=== PATIENT | female | born 1940 | race Caucasian/White ===

== ENCOUNTER 2016-11-10 14:00 | Inpatient (IN) | payer MEDICARE, BC ==
[2016-11-13] MEDS ORDERED: Levofloxacin 500 mg/D5W 100 ml Premix Bag ONE (06:40)
[2016-11-13] MEDS ORDERED: Clindamycin/D5W 900 mg/50 ml Premix Bag ONE (06:40)
[2016-11-13] MEDS ORDERED: Heparin 10,000 UNITS/1 ML VIAL 30,000 UNITS in Sodium Chloride 0.9% 1,000 ML FS SCH (06:45)
[2016-11-13] MEDS ORDERED: Midazolam HCl 5 mg/5 ml Vial ONE (06:56)
[2016-11-13] MEDS ORDERED: Fentanyl 100 MCG/2 ML VIAL ONE (06:56)
[2016-11-13] MEDS ORDERED: Vecuronium 10 MG VIAL ONE ×3 (06:56→08:12)
[2016-11-13] MEDS ORDERED: Midazolam HCl 2 mg/2 ml Vial ONE (07:12)
[2016-11-13] MEDS ORDERED: Lidocaine 2% PF 10 ML AMP (For Epidural Use) ONE (08:12)
[2016-11-13] MEDS ORDERED: Hydrocortisone Sod Succ/PF 100 mg/2 ml Vial ONE (08:12)
[2016-11-13] MEDS ORDERED: Propofol 200 MG/20 ML VIAL ONE (08:12)
[2016-11-13] MEDS ORDERED: Guaifenesin DM 100-10/5 ML UDCUP PO PRN (11:46)
[2016-11-13] MEDS ORDERED: CCU Insulin Drip FS ONE (11:46)
[2016-11-13] MEDS ORDERED: HYDROcodone/Acetaminophen 5/325 mg Tablet PO PRN ×2 (11:46)
[2016-11-13] MEDS ORDERED: DOPamine 400 MG/D5W 250 ML 250 ML IVPB PRN (11:46)
[2016-11-13] MEDS ORDERED: Acetaminophen 325 MG TAB PO PRN (11:46)
[2016-11-13] MEDS ORDERED: SLIDING SCALE FS ONE (11:46)
[2016-11-13] MEDS ORDERED: Ondansetron HCl/PF 4 MG/2 ML Vial IVP PRN (11:46)
[2016-11-13] MEDS ORDERED: Mag-Al 1200 mg/1200 mg/30 ML UDCUP PO PRN (11:46)
[2016-11-13] MEDS ORDERED: Bisacodyl 5 MG TAB PO PRN (11:46)
[2016-11-13] MEDS ORDERED: Phenylephrine 10 MG/NS 250 ML 250 ML IVPB PRN (11:46)
[2016-11-13] MEDS ORDERED: Nitroglycerin 50 MG/250 ML BOT 250 ML IVPB PRN (11:46)
[2016-11-13] MEDS ORDERED: Bisacodyl 10 MG SUPP PR PRN (11:46)
[2016-11-13] MEDS ORDERED: Hetastarch 6% 500 ML 500 ML IVPB PRN (11:46)
[2016-11-13] MEDS ORDERED: Insulin Regular 300 UNITS/3 ML VIAL SC PRN (11:49)
[2016-11-13] MEDS ORDERED: Dextrose 5% in Water 1,000 ML IV PRN (11:49)
[2016-11-13] MEDS ORDERED: Dextrose 50% Abboject 50 ML SYRINGE SLOW IVP PRN (11:49)
--- NOTE | 2016-11-13 12:03 | OP ---
PREOPERATIVE DIAGNOSIS: Coronary artery disease. PROCEDURES: Coronary artery bypass graft x3. Good quality left internal mammary artery to a good q uality 2 mm LAD, saphenous vein graft to a 1.5-2 mm OM and a 1.25-1.5 mm proximal right posterolater al. SURGEON: Kenny Comer M.D. MANOMETER TECHNICIAN: Dean Pierre M.D. TRANSFUSION: None. PROCEDURE IN DETAIL: After adequate anesthesia had been obtained, she was prepped and draped and I did an endovascular vein harvest of the left greater saphenous vein. After completing this and prep aring the vein, my attention was turned to the sternotomy where the left internal mammary artery was harvested. Right pleura was entered with the sternal saw and this was then later closed over a Shawn ke drain. Left pleura was entered at the apex of the chest. Following heparinization and dividing the mammary, the mammary was passed posterior to a remnant of thymus gland. Aorta and right atrium were cannulated and cardiopulmonary bypass was instituted. Following this, vessels were inspected f or grafting. The aorta was cross-clamped and a liter of [place] cardioplegia solution was given. Following this, 3 distal anastomoses were performed where the right coronary artery anastomosis perf ormed at the origin of the posterolateral system at the takeoff of the PDA. Following completion of the three distal anastomoses, 2 proximal anastomoses were performed and marked with rings. Suture was required in the distal right coronary artery anastomosis. Following this, the patient was weane d from cardiopulmonary bypass, cannulas removed, and protamine was given systemically. Mediastinal and bilateral drains were placed, following which the sternum was reapproximated with #7 interrupted wire using vancomycin paste on the sternal edges, platelet-enriched blood, and platelet-poor plasma . Subcutaneous tissue and skin were closed in layers.
[2016-11-13 12:06] LABS: #Eosinphils 0.1 thou/uL (0.0-0.7); #Lymphocytes 1.1 thou/uL (1.20-3.40); #Monocytes 0.5 thou/uL (0.11-0.59); #Neutrophils 10.4 thou/uL (1.40-6.50); %Basophils 0.4 % (0.0-1.0); %Eosinophils 0.6 % (0.0-10.0); Mean Platelet Volume 7.8 fL (7.4-10.4); Red Blood Cell (RBC) Count 3.43 mill/uL (4.20-5.40); White Blood Cell (WBC) Count 12.1 thou/uL (4.8-10.8)
[2016-11-13 12:16] LABS: PTT 32.8 SEC (22.9-36.1); Prothrombin Time 17.8 SEC (12.0-14.7)
[2016-11-13 12:22] LABS: Oxyhemoglobin 96.5 % (94.0-97.0); Sodium 142 mmol/L (135-148)
[2016-11-13 12:23] LABS: Mechanical Tidal Volume 500 ml; Mode SIMV.PSV; Modified Allen's Test NOT DONE; Pressure Support 10 cmH2O; Vent YES
[2016-11-13 12:30] LABS: Anion Gap 14 mmol/L (10-20); BUN (Urea Nitrogen) 20 mg/dL (9.8-20.1); Calc. Creatinine Clearance 0 mL/min (70-130); Calcium 7.6 mg/dL (7.8-10.44); Carbon Dioxide 19 mmol/L (23-31); Chloride 111 mmol/L (98-107); Estimated GFR-MDRD 89
[2016-11-13] MEDS ORDERED: Magnesium Sulfate 5 GM in Sodium Chloride 0.9% 1,000 ML IV SCH (12:30)
[2016-11-13] MEDS: Clindamycin/D5W 900 MG in Premix Bag 1 BAG IVPB SCH ×2 (12:58→18:12)
[2016-11-13] MEDS: Hydrocortisone Sod Succ/PF 100 mg/2 ml Vial IVP SCH ×2 (14:17→21:10)
[2016-11-13] MEDS: Potassium Chloride 20 MEQ/100 ML PREMIX BAG IVPB PRN (16:11)
--- NOTE | 2016-11-13 16:44 | RAD ---
PORTABLE SUPINE FRONTAL CHEST RADIOGRAPH 11/13/2016 COMPARISON: None. HISTORY: Open heart surgery, evaluate postoperative changes. FINDINGS: Endotracheal tube projects over the tracheal air column, terminating at the level of the clavicles. Postoperative drainage catheter overlies the mediastinum, the left hemithorax, and the right lung b ase. A right-sided vascular catheter present, distal tip overlying the region of the right atrium. Midline sternotomy wires are present. Supine imaging limits assessment for pneumothorax and pleura l fluid. No lobar consolidation or alveolar edema. Mild increased density in the medial left base suggests volume loss. IMPRESSION: Postoperative lines and tubes as detailed above. POS: [facility]
[2016-11-13 17:34] LABS: Hematocrit 28.4 % (36.0-47.0)
[2016-11-13] MEDS: Fentanyl 100 MCG/2 ML VIAL SLOW IVP PRN ×2 (17:50→21:00)
[2016-11-13] MEDS: Sodium Chloride 0.9% 1,000 ML IV SCH (19:00)
[2016-11-14] MEDS: Sodium Chloride 0.9% 1,000 ML IV SCH
[2016-11-14] MEDS: Fentanyl 100 MCG/2 ML VIAL SLOW IVP PRN ×3 (00:15→19:30)
[2016-11-14] MEDS: Clindamycin/D5W 900 MG in Premix Bag 1 BAG IVPB SCH ×2 (00:33→07:24)
[2016-11-14 03:17] LABS: Oxyhemoglobin 96.7 % (94.0-97.0); Sodium 142 mmol/L (135-148)
[2016-11-14 03:20] LABS: Pressure Support 10 cmH2O; Vent YES
[2016-11-14 03:21] LABS: Mode CPAP
[2016-11-14 05:05] LABS: #Lymphocytes 0.7 thou/uL (1.20-3.40); #Monocytes 0.8 thou/uL (0.11-0.59); #Neutrophils 10.2 thou/uL (1.40-6.50); %Lymphocytes 5.6 % (21.0-51.0); %Monocytes 7.2 % (0.0-10.0); Mean Platelet Volume 8.1 fL (7.4-10.4); Red Blood Cell (RBC) Count 3.42 mill/uL (4.20-5.40); White Blood Cell (WBC) Count 11.7 thou/uL (4.8-10.8)
[2016-11-14 05:31] LABS: Anion Gap 13 mmol/L (10-20); BUN (Urea Nitrogen) 18 mg/dL (9.8-20.1); Calc. Creatinine Clearance 84 mL/min (70-130); Calcium 7.9 mg/dL (7.8-10.44); Carbon Dioxide 19 mmol/L (23-31); Chloride 114 mmol/L (98-107); Estimated GFR-MDRD 89
[2016-11-14] MEDS: Hydrocortisone Sod Succ/PF 100 mg/2 ml Vial IVP SCH (05:38)
[2016-11-14] MEDS: Potassium Chloride 20 MEQ/100 ML PREMIX BAG IVPB PRN (05:59)
[2016-11-14] MEDS: predniSONE 5 MG TAB PO SCH (07:24)
--- NOTE | 2016-11-14 08:50 | RAD ---
PORTABLE CHEST: History: Post op sternotomy follow up. Comparison: 11-13-16 FINDINGS/IMPRESSION: ET tube has been removed. Central line has tip overlying the right atrium and is unchanged. Drainage catheters again noted. Heart is mildly enlarged and there is mild vascular engorgement. There is ev idence of small bilateral effusions and mild bibasilar atelectasis. POS: [facility]
[2016-11-14] MEDS ORDERED: Famotidine/PF 20 mg/2ml Vial SLOW IVP SCH (09:00)
[2016-11-14] MEDS ORDERED: Atorvastatin Calcium 20 MG TAB PO SCH (09:00)
[2016-11-14 18:30] LABS: Bilirubin Negative (Negative); Blood, Urine Negative (Negative); Glucose, Urine (Dipstick) 100 mg/dL (Negative); Ketone, Urine Negative (Negative); Nitrite Negative (Negative); Protein, Urine (Dipstick) 100 mg/dL (Neg-Trace); Urobilinogen 0.2 mg/dL (0.2-1.0)
[2016-11-14 18:33] LABS: Bacteria/HPF None Seen HPF (None Seen); Hyaline Casts/LPF 7-10 HYALINE CAST LPF (0-3 Hyaline); WBC/HPF 21-50 HPF (0-3)
[2016-11-14 18:37] LABS: Renal Epithelial None Seen HPF (0-3); Transitional Epithelial 0-3 HPF (0-3)
--- NOTE | 2016-11-14 21:36 | CON ---
CARDIOLOGY CONSULTATION NOTE DATE OF CONSULTATION: 11/14/2016 REASON FOR CONSULTATION: Post-coronary artery bypass graft. HISTORY OF PRESENT ILLNESS: Ms. Barfield is a very pleasant 76-year-old white female who was admitted to the hospital for planned coronary bypass grafting. She had a heart catheterization done earlier last week and was found to have severe multivessel coronary disease. Dr. Comer evaluated her and scheduled her for surgery yesterday. She underwent three-vessel bypass with a JUSTICE to the LAD , a vein to an OM, and a vein to RCA. She did well. She was extubated earlier today. She complains only of being sore, otherwise no other issues. PAST MEDICAL HISTORY: 1. Hypertension 2. Hyperlipidemia. 3. Coronary artery disease 4. Rheumatoid Arthritis. PAST SURGICAL HISTORY: 1. Tonsillectomy. 2. Appendectomy. 3. Hemorrhoidectomy. 4. Laminectomy. 5. Hysterectomy. OUTPATIENT MEDICATIONS: Include; 1. Lorazepam p.r.n. 2. Leflunomide. 3. Metoprolol 25 mg daily. 4. Prednisone 5 mg every other day. 5. Oxybutynin 5 mg twice a day. 6. Losartan/hydrochlorothiazide 50/12.5 mg a day. 7. Cimzia 2 mL subcu every 4 weeks. ALLERGIES: CODEINE and PENICILLIN. FAMILY HISTORY: Noncontributory. SOCIAL HISTORY: Quit smoking in 1993, but he smoked about a pack and a half a day. REVIEW OF SYSTEMS: A 12-point review of systems was done and is all negative unless stated in the history of present illness. PHYSICAL EXAMINATION: VITAL SIGNS: Temperature 100.4, heart rate 95, respiration rate 26, satting 93 % on room air and blood pressure 131/60. GENERAL: Awake, alert and oriented x3, in no distress. HEENT: Normocephalic and atraumatic. NECK: Supple. LUNGS: Clear. CARDIOVASCULAR: S1 and S2. No S3 or S4. No murmurs or rubs. ABDOMEN: Soft. Positive bowel sounds. EXTREMITIES: 1+ edema. SKIN: Warm and dry. LABORATORY WORK: Reviewed. CBC: White count of 11.7, hemoglobin of 10.5, hematocrit of 32 and platelet count of 172. Coags were unremarkable. ABG was reviewed. Chemistries were reviewed and were unremarkable. Calcium 7.9. Telemetry; normal sinus rhythm. ASSESSMENT AND PLAN: 1. Multivessel coronary artery disease. 2. Status post coronary artery bypass grafting x3. 3. Hypertension. 4. Fever. PLAN: 1. We will get a urinalysis to make sure there are no issues there. 2. Agree with stress dose steroids for the next few days. 3. Continue postoperative care and increase PT as tolerated. 4. If the blood pressure remains similar to what it is now, we will restart losartan tomorrow at a low dose. 5. We will get a UA and repeat chest x-ray. Thank for allowing me to participate in the care of your patient. We will follow. [facility]
[2016-11-15 04:27] LABS: #Lymphocytes 1.8 thou/uL (1.20-3.40); #Monocytes 1.1 thou/uL (0.11-0.59); #Neutrophils 9.3 thou/uL (1.40-6.50); %Basophils 0.3 % (0.0-1.0); %Eosinophils 0.3 % (0.0-10.0); %Lymphocytes 14.6 % (21.0-51.0); Hematocrit 31.5 % (36.0-47.0); Mean Platelet Volume 8.1 fL (7.4-10.4); Red Blood Cell (RBC) Count 3.32 mill/uL (4.20-5.40); White Blood Cell (WBC) Count 12.3 thou/uL (4.8-10.8)
[2016-11-15 04:43] LABS: Anion Gap 9 mmol/L (10-20); BUN (Urea Nitrogen) 19 mg/dL (9.8-20.1); Calc. Creatinine Clearance 90 mL/min (70-130); Calcium 8.2 mg/dL (7.8-10.44); Carbon Dioxide 24 mmol/L (23-31); Chloride 109 mmol/L (98-107); Estimated GFR-MDRD Greater than 90
[2016-11-15] MEDS: Fentanyl 100 MCG/2 ML VIAL SLOW IVP PRN (06:04)
[2016-11-15] MEDS: Potassium Chloride 20 MEQ/100 ML PREMIX BAG IVPB PRN (06:05)
[2016-11-15] MEDS ORDERED: Mineral Oil ENEMA PR PRN (07:13)
[2016-11-15] MEDS ORDERED: Guaifenesin DM 100-10/5 ML UDCUP PO PRN (07:13)
[2016-11-15] MEDS ORDERED: Bisacodyl 5 MG TAB PO PRN (07:13)
[2016-11-15] MEDS ORDERED: Bisacodyl 10 MG SUPP PR PRN (07:13)
[2016-11-15] MEDS ORDERED: Mag-Al 1200 mg/1200 mg/30 ML UDCUP PO PRN (07:13)
[2016-11-15] MEDS ORDERED: Nitroglycerin 0.4 MG TAB 1 EACH SL PRN (07:13)
--- NOTE | 2016-11-15 08:09 | CON ---
DATE OF CONSULTATION: 11/15/2016 REASON FOR CONSULTATION: ICU care. HISTORY OF PRESENT ILLNESS: This is a 76-year-old female who underwent coronary artery bypass graft ing surgery yesterday. So far, she has done well and has had no complications. She was extubated l ast night. Today, she complains of chest pain from the sternotomy, but is otherwise breathing well. PAST MEDICAL HISTORY: 1. Hypertension. 2. Hyperlipidemia. PAST SURGICAL HISTORY: 1. Tonsillectomy. 2. Appendectomy 3. Hemorrhoidectomy. 4. Laminectomy. 5. Hysterectomy. MEDICATIONS PRIOR TO ADMISSION: Lorazepam, leflunomide, metoprolol, prednisone, oxybutynin, losarta n/hydrochlorothiazide. ALLERGIES: CODEINE and PENICILLIN. FAMILY MEDICAL HISTORY: Unremarkable. SOCIAL HISTORY: Quit smoking in 1993 after smoking a pack and a half a day prior. No alcohol consu mption of significance. REVIEW OF SYSTEMS: A 12 point review of systems otherwise negative. PHYSICAL EXAMINATION: VITAL SIGNS: Temperature 98.7, pulse 84, respirations 19, O2 sat 96% on 2 liters. GENERAL: She is awake and alert and in no distress. HEENT: Unremarkable. NECK: Without adenopathy or JVD. LUNGS: Clear to auscultation without wheezing or rhonchi. CARDIOVASCULAR: S1, S2 regular, without murmur. ABDOMEN: Soft and nontender. EXTREMITIES: She has a bandage over her left lower extremity. LABORATORY DATA: White blood cell count 12.3, hematocrit 31.5, platelet count 154. Sodium 138, pot assium 3.8, chloride 109, CO2 24, BUN 19, creatinine 0.6, glucose 132. ASSESSMENT: Status post coronary artery bypass grafting surgery with no complications thus far. Th e patient has a relatively clear x-ray and has done well since extubation. PLAN: Present management will help for removal of her chest tubes later today. I will be happy to follow her with you while she is in the ICU.
[2016-11-15] MEDS: Furosemide 40 MG TAB PO SCH (08:42)
[2016-11-15] MEDS: Potassium Chloride 10 MEQ TAB PO SCH (08:42)
[2016-11-15] MEDS: Famotidine 20 MG TAB PO SCH ×2 (08:43→21:52)
[2016-11-15] MEDS: Metoprolol Tartrate 25 MG TAB PO SCH ×2 (08:43→21:51)
[2016-11-15] MEDS: Aspirin 325 mg Enteric Coated Tablet PO SCH (08:43)
[2016-11-15] MEDS: predniSONE 5 MG TAB PO SCH (08:43)
--- NOTE | 2016-11-15 09:26 | RAD ---
SEMIUPRIGHT PORTABLE CHEST 1 VIEW: Date: 11/15/16 HISTORY: 76-year-old female for postop open heart follow-up. FINDINGS: Chest tubes and right subclavian catheter are noted. Recent postop midline sternotomy changes with s ome bibasilar pleural and parenchymal opacity changes, worse on the left side consistent with postop change without pneumothorax or other acute process. IMPRESSION: Stable postoperative changes. No pneumothorax or other acute process. POS: [facility]
--- NOTE | 2016-11-15 13:04 | PDOC.CTH ---
Cardiology Progress Note - Subjective She is doing well. She will have her chest tubes pulled out later today. She is using her incentive spirometer. She is passing gas. - Objective Vital Signs Temp Pulse Resp BP Pulse Ox 11/15/16 12:00 99.3 F 92 22 H 131/62 99 11/15/16 08:00 98.7 F 88 22 H 119/58 L 100 11/15/16 07:21 98.7 F 84 19 96 11/15/16 04:00 98.6 F Weight 160 lb 11/14/16 11/15/16 11/16/16 06:59 06:59 06:59 Intake Total 2603.2 1710 300 Output Total 2663 1382 525 Balance -59.8 328 -225 - Physical Examination General/Neuro: alert & oriented x3, NAD Neck: no JVD present Lungs: CTA, unlabored respirations Heart: RRR Abdomen: NT/ND Extremities: + edema B (2+) - Telemetry Telemetry Rhythm: NSR - Labs Result Diagrams: 11/15/16 04:05 11/15/16 04:05 - Assessment/Plan 1. Multivessel CAD. 2. S/P CABG 3. HTN 4. Rheumatoid arthritis. PLAN: - Aspirin and statin for life. - Continue metoprolol at current dose. - Restart ARB once BP allow in next few days. - Back to normal dose steroids.
[2016-11-15 16:49] LABS: Oxyhemoglobin 98.2 % (94.0-97.0); Sodium 142 mmol/L (135-148)
[2016-11-15 16:49] LABS: Oxyhemoglobin 98.4 % (94.0-97.0); Sodium 142 mmol/L (135-148)
[2016-11-15 16:49] LABS: Base Excess -0.4 mEq/L (0 (+/- 2.5)); O2 Content (venous) 9.5 VOL% (12.5-17.5); pH (venous) 7.394 (7.35-7.45)
[2016-11-15 16:49] LABS: Oxyhemoglobin 98.3 % (94.0-97.0); Sodium 143 mmol/L (135-148)
[2016-11-15 16:49] LABS: Oxyhemoglobin 98.2 % (94.0-97.0); Sodium 142 mmol/L (135-148)
[2016-11-15 17:28] LABS: Mode OR ABG; Vent YES
[2016-11-15 17:28] LABS: Mode OR ABG; Vent YES
[2016-11-15 17:29] LABS: Mode OR ABG; Vent YES
[2016-11-15 17:30] LABS: Mode OR ABG; Vent YES
[2016-11-15] MEDS: Zolpidem Tartrate 5 MG TAB PO PRN (21:52)
[2016-11-15] MEDS: Atorvastatin Calcium 20 MG TAB PO SCH (21:52)
[2016-11-16] MEDS: Potassium Chloride 10 MEQ TAB PO SCH (09:37)
[2016-11-16] MEDS: Aspirin 325 mg Enteric Coated Tablet PO SCH (09:38)
[2016-11-16] MEDS: Metoprolol Tartrate 25 MG TAB PO SCH ×2 (09:38→20:33)
[2016-11-16] MEDS: Furosemide 40 MG TAB PO SCH (09:38)
[2016-11-16] MEDS: Famotidine 20 MG TAB PO SCH ×2 (09:38→20:33)
[2016-11-16] MEDS: predniSONE 5 MG TAB PO SCH (09:39)
--- NOTE | 2016-11-16 12:48 | PDOC.CTH ---
Cardiology Progress Note - Subjective She is doing great. Her chest tubes were pulled. She had a BM today. She has walked 3 times already and feels well doing so. - Objective Vital Signs Temp Pulse Pulse Pulse Resp BP BP 11/16/16 12:00 98.4 F 81 18 11/16/16 09:14 105 H 107 H 142/65 H 126/60 11/16/16 08:00 98.1 F 99 18 11/16/16 04:10 11/16/16 04:00 99.3 F 60 16 BP BP Pulse Ox Pulse Ox Pulse Ox 11/16/16 12:00 124/61 94 L 11/16/16 09:14 93 L 94 L 11/16/16 08:00 118/57 L 92 L 11/16/16 04:10 92 L 11/16/16 04:00 144/66 H 95 Weight 173 lb 6.4 oz 11/15/16 11/16/16 11/17/16 06:59 06:59 06:59 Intake Total 1710 540 Output Total 1382 4075 Balance 328 -3535 - Physical Examination General/Neuro: alert & oriented x3, NAD Neck: no JVD present Lungs: CTA, unlabored respirations Heart: RRR Abdomen: NT/ND Extremities: + edema B (1+) - Telemetry Telemetry Rhythm: NSR - Labs Result Diagrams: 11/15/16 04:05 11/15/16 04:05 - Assessment/Plan 1. Multivessel CAD. 2. S/P CABG 3. HTN 4. Rheumatoid arthritis. PLAN: - Aspirin and statin for life. - Continue metoprolol at current dose. - Restart ARB today. - Increase PT as tolerated.
[2016-11-16] MEDS: Atorvastatin Calcium 20 MG TAB PO SCH (20:33)
[2016-11-16] MEDS: Zolpidem Tartrate 5 MG TAB PO PRN (21:21)
[2016-11-17] MEDS: Losartan Potassium 25 MG TAB PO SCH (08:22)
[2016-11-17] MEDS: Furosemide 40 MG TAB PO SCH (08:23)
[2016-11-17] MEDS: Metoprolol Tartrate 25 MG TAB PO SCH ×2 (08:23→20:59)
[2016-11-17] MEDS: Famotidine 20 MG TAB PO SCH ×2 (08:23→20:59)
[2016-11-17] MEDS: Aspirin 325 mg Enteric Coated Tablet PO SCH (08:23)
[2016-11-17] MEDS: predniSONE 5 MG TAB PO SCH (08:23)
[2016-11-17] MEDS: Potassium Chloride 10 MEQ TAB PO SCH (08:23)
--- NOTE | 2016-11-17 11:27 | PDOC.CTH ---
Cardiology Progress Note - Subjective she is doing better. She denies any chest pain, tightness, pressure, SOB. She has been walking around the halls with her daughter and feels well doing so. - Objective Vital Signs Temp Pulse Pulse Pulse Resp BP BP 11/17/16 08:33 97 106 H 141/65 H 138/65 11/17/16 08:10 98.5 F 97 18 11/17/16 04:00 99.1 F 85 20 BP BP Pulse Ox Pulse Ox 11/17/16 08:33 93 L 11/17/16 08:10 117/66 93 L 11/17/16 04:00 124/59 L 93 L Weight 163 lb 9.6 oz 11/16/16 11/17/16 11/18/16 06:59 06:59 06:59 Intake Total 540 1160 Output Total 4075 700 Balance -3535 460 - Physical Examination General/Neuro: alert & oriented x3, NAD Neck: no JVD present Lungs: CTA, unlabored respirations Heart: RRR Abdomen: NT/ND Extremities: + edema B (1+) - Telemetry Telemetry Rhythm: NSR - Labs Result Diagrams: 11/15/16 04:05 11/15/16 04:05 - Assessment/Plan 1. Multivessel CAD. 2. S/P CABG 3. HTN 4. Rheumatoid arthritis. PLAN: - Aspirin and statin for life. - Continue metoprolol at current dose. - Increase losartan to 25 mg daily. - Increase PT as tolerated. - Follow up in one month in clinic on discharge,
[2016-11-17] MEDS: Atorvastatin Calcium 20 MG TAB PO SCH (20:59)
[2016-11-17] MEDS: Zolpidem Tartrate 5 MG TAB PO PRN (22:24)
[2016-11-18 06:15] VITALS: BMI 27.1
[2016-11-18 07:51] VITALS: BP 130/62; TEMP 98.5
[2016-11-18] MEDS: Furosemide 40 MG TAB PO SCH (09:48)
[2016-11-18] MEDS: Aspirin 325 mg Enteric Coated Tablet PO SCH (09:48)
[2016-11-18] MEDS: Potassium Chloride 10 MEQ TAB PO SCH (09:48)
[2016-11-18] MEDS: Famotidine 20 MG TAB PO SCH (09:48)
[2016-11-18] MEDS: Metoprolol Tartrate 25 MG TAB PO SCH (09:48)
[2016-11-18] MEDS: Losartan Potassium 25 MG TAB PO SCH (09:49)
[2016-11-18] MEDS: predniSONE 5 MG TAB PO SCH (09:49)
== END 2016-11-18 10:31 | disposition home or self-care (01) | DRG 236 ==
LOC: SURG A 11-13 05:59 → CCU 11-13 10:17 → 2NO 11-15 13:11
PROVIDERS: ADMIT Thoracic Surgery (Cardiothoracic Vascular Surgery); ATTEND Thoracic Surgery (Cardiothoracic Vascular Surgery)
PROC: 0210099 Bypass Coronary Artery, One Artery from Left Internal Mammary with Autologous Venous Tissue, Open Approach (ICD-10-PCS; principal; 2016-11-13)
PROC: 021109W Bypass Coronary Artery, Two Arteries from Aorta with Autologous Venous Tissue, Open Approach (ICD-10-PCS; 2016-11-13)
PROC: 06BQ3ZZ Excision of Left Saphenous Vein, Percutaneous Approach (ICD-10-PCS; 2016-11-13)
PROC: 5A1221Z Performance of Cardiac Output, Continuous (ICD-10-PCS; 2016-11-13)
DX: I25.10 Atherosclerotic heart disease of native coronary artery without angina pectoris (principal); E87.2 Acidosis; E78.5 Hyperlipidemia, unspecified; Z87.891 Personal history of nicotine dependence; M06.9 Rheumatoid arthritis, unspecified; I10 Essential (primary) hypertension
CPT/HCPCS: 36415; 36416; 71010; 80048; 80061; 81003; 81015; 82805; 85025; 85610; 85730; 86850; 86900; 86901; 93005; 93010; 93458; 93798; 94002; 94003; 94150; 99152; C1760; C1769; J0360; J1642; J1644; J1720; J1815; J1956; J2001; J2250; J2704; J3010; J3475; J3480; J3490; J7050; P9045; S0028

== ENCOUNTER 2016-12-27 17:43 | Outpatient (CLI) | payer MEDICARE, BC ==
--- NOTE | 2016-12-27 20:23 | RAD ---
TWO VIEWS OF THE RIGHT SCAPULA 12/27/16 INDICATION: Right shoulder pain. COMPARISON: None. FINDINGS: No displaced fracture is evident. No destructive osseous lesion is evident. There is moderate right AC joint osteoarthrosis. There is postsurgical change of a prior CABG. Visualized right lung is faye r. IMPRESSION: No acute osseous abnormality. POS: [facility]
--- NOTE | 2016-12-27 21:38 | RAD ---
THREE VIEWS OF THE RIGHT SHOULDER 12/27/16 INDICATION: Right shoulder pain. COMPARISON: None. FINDINGS: There is moderate AC joint osteoarthrosis. There is a small morphic calcification overlying the righ t greater tuberosity consistent with calcific tendinosis measuring 3.5 mm. No acute fracture or subl uxation is evident. The visualized right lung is clear. IMPRESSION: 1. Calcific tendinosis of the right shoulder. 2. Moderate AC joint osteoarthrosis. POS: [facility]
--- NOTE | 2016-12-27 21:43 | RAD ---
THREE VIEWS OF THE THORACIC SPINE: 12/27/16 INDICATION: Back pain with history of bypass in October 2016. COMPARISON: None. FINDINGS: There are twelve ribbearing thoracic vertebrae. There is moderate multilevel spondylosis of the thor acic spine. The spinal alignment appears within normal limits. There is some slight accentuation of the kyphosis likely related to multilevel disc degenerative disease. There is postsurgical change of a prior CABG. IMPRESSION: 1. No acute osseous abnormality. 2. Moderate spondylosis of the thoracic spine. POS: [facility]
--- NOTE | 2016-12-27 22:14 | RAD ---
PA AND LATERAL OF THE CHEST 12/27/16 INDICATION: Chest pain and right shoulder pain. COMPARISON: Prior exam dated 11/15/16. FINDINGS: The previously seen right subclavian central venous catheter has been removed. Post CABG changes sta ble. Thoracostomy tube has been removed. Sternotomy wires are unchanged. No pneumothorax is evident. No acute air space opacity or pleural effusion is noted. IMPRESSION: No acute cardiopulmonary abnormality. POS: [facility]
--- NOTE | 2016-12-27 22:18 | RAD ---
THREE VIEWS OF THE CERVICAL SPINE 12/27/16 INDICATION: Right shoulder/right neck pain. History of triple bypass. FINDINGS: No acute fracture is evident. There is advanced multilevel spondylosis of the cervical spine with an terior translation of C5 on C6. Prevertebral soft tissues are normal appearing. There is partial vis ualization of post CABG change involving the upper thorax. Lung apices are clear. Lateral masses are symmetric. IMPRESSION: 1. Severe spondylosis cervical spine. 2. No acute fracture or subluxation demonstrated. 3. Post CABG change. POS: [facility]
== END 2016-12-27 17:44 | disposition home or self-care (01) ==
LOC: SCSRAD 17:43
PROVIDERS: ATTEND Internal Medicine
DX: M25.511 Pain in right shoulder (principal); M19.90 Unspecified osteoarthritis, unspecified site; M47.812 Spondylosis without myelopathy or radiculopathy, cervical region; M47.814 Spondylosis without myelopathy or radiculopathy, thoracic region; M19.011 Primary osteoarthritis, right shoulder; M75.31 Calcific tendinitis of right shoulder
CPT/HCPCS: 71020; 72040; 72072

== ENCOUNTER 2017-06-14 10:56 | Outpatient (CLI) | payer MEDICARE, BC ==
[~2017-06-14 10:56] MED LIST: Iopamidol 370 76% 100 ML VIAL ONE
--- NOTE | 2017-06-14 14:03 | CT ---
CT ANGIOGRAM ABDOMEN WITH IV CONTRAST AND 3D RECONSTRUCTIONS: DATE: 06/14/17. HISTORY: Mesenteric ischemia. COMPARISON: Noncontrast CT abdomen on 01/15/16. FINDINGS: The celiac and superior mesenteric arteries are patent. The origin of the MEGAN is not well visualized due to vascular calcifications in this region but is otherwise patent. There are single patent bilateral renal arteries present with minimal vascular calcifications involvi ng the proximal left renal artery. There is mild atherosclerotic plaque in the infrarenal abdominal aorta. However, there is no evidence of an abdominal aortic aneurysm or dissection. Bilateral commo n iliac arteries and most proximal internal and external iliac arteries are patent with only minimal vascular calcifications present. There is minimal dependent bibasilar atelectasis versus scarring. There is an incompletely imaged 3 mm noncalcified pulmonary nodule in the lateral aspect left lower lobe. There is partial visualization of median sternotomy wires. Degenerative changes are seen in the spine. The liver, spleen, pancreas, bilateral adrenal glands, and left kidney demonstrate a normal CT appear ance for arterial phase of imaging. There is a 1.1 cm exophytic inferior pole right renal cyst present. There is mild nonspecific but sym metric bilateral perinephric stranding identified. Visualized lops of small bowel are normal in caliber and no bowel wall thickening is present. There is no evidence of mesenteric edema. Degenerative changes are seen in the lower lumbar spine. IMPRESSION: 1. The celiac and superior mesenteric arteries are patent. The origin of the inferior mesenteric ar lucia is partially obscured due to vascular calcifications but otherwise appears patent. 2. Mild scattered atherosclerotic calcifications and plaque within the abdominal aorta and iliac art eries. 3. Too small to characterize approximately 3 mm pulmonary nodule left lower lobe. 4. Inferior pole right renal cyst. 5. Nonspecific bilateral perinephric stranding and fluid, but this is stable compared to the study i n 2015. POS: [facility]
== END 2017-06-14 10:57 | disposition home or self-care (01) ==
LOC: SCSCT 10:56
PROVIDERS: ATTEND Internal Medicine Gastroenterology
DX: R10.13 Epigastric pain (principal); K55.1 Chronic vascular disorders of intestine; I70.0 Atherosclerosis of aorta; I70.8 Atherosclerosis of other arteries; R91.1 Solitary pulmonary nodule; N28.1 Cyst of kidney, acquired; R93.422 Abnormal radiologic findings on diagnostic imaging of left kidney; R93.421 Abnormal radiologic findings on diagnostic imaging of right kidney
CPT/HCPCS: 74175

== ENCOUNTER 2017-07-13 12:24 | Outpatient (CLI) | payer MEDICARE, BC ==
--- NOTE | 2017-07-13 15:26 | NM ---
HEPATOBILIARY SCAN: HISTORY: Diarrhea, unspecified. RADIOPHARMACEUTICAL: 5.2 mCi Technetium 99m mebrofenin injected intravenously. FINDINGS: There is normal extraction by the liver with prompt excretion into the biliary tract and small bowel loops and normal filling of the gallbladder. The calculated gallbladder ejection fraction following an oral fatty meal measures 95%. IMPRESSION: Normal exam. POS: [facility]
== END 2017-07-13 12:25 | disposition home or self-care (01) ==
LOC: NM 12:24
PROVIDERS: ATTEND Internal Medicine Gastroenterology
DX: R19.7 Diarrhea, unspecified (principal); R10.9 Unspecified abdominal pain
CPT/HCPCS: 78227; A9537

== ENCOUNTER 2017-11-06 14:15 | Outpatient (CLI) | payer MEDICARE, BC | END 2017-11-06 14:16 | disposition home or self-care (01) | LOC: BICRAD 14:15 | PROVIDERS: ATTEND Physician Assistant | DX: M17.0 Bilateral primary osteoarthritis of knee (principal) ==

== ENCOUNTER 2018-07-02 10:20 | Outpatient (CLI) | payer MEDICARE, BC ==
--- NOTE | 2018-07-02 11:21 | BD ---
DEXA BONE DENSITY STUDY: Date: 07/02/18 HISTORY: Postmenopausal. FINDINGS: Lumbar Spine: BMD (g/cm2) L1 0.782 T-Score: -1.9 L2 0.755 T-Score: -2.5 L3 0.818 T-Score: -2.4 L4 0.857 T-Score: -1.9 Total 0.805 T-Score: -2.2 Left Femoral Neck: 0.719 T-Score: -1.2 Total Femur: 0.826 T-Score: -1.0 IMPRESSION: 1. Osteopenia of the lumbar spine and left femoral neck. 2. The 10 year fracture risk for a major osteoporotic fracture is 14% and for hip fracture of 3%. [facility] are [facility] for an [facility]. POS: [facility]
--- NOTE | 2018-07-02 11:42 | MMO ---
Bilateral MAMMO Bilat Screen [facility]MELISSA. CLINICAL HISTORY: Patient is 78 years old and is seen for screening. The patient has the following family history of breast cancer: maternal aunt and paternal uncle. The patient has no personal history of cancer. VIEWS: The views performed were: bilateral craniocaudal with tomosynthesis and bilateral mediolateral oblique with tomosynthesis. FILMS COMPARED: The present examination has been compared to prior imaging studies performed at [facility] on 11/01/2011, 11/01/2012, 11/04/2013, 11/06/2014 and 02/02/2016. MAMMOGRAM FINDINGS: There are scattered fibroglandular densities. There are stable benign appearing calcifications seen in both breasts. There are also vascular calcifications. There are no suspicious masses, suspicious calcifications, or new areas of architectural distortion. IMPRESSION: THERE IS NO MAMMOGRAPHIC EVIDENCE OF MALIGNANCY. A ROUTINE FOLLOW-UP MAMMOGRAM IN 1 YEAR IS RECOMMENDED. THE RESULTS OF THIS EXAM WERE SENT TO THE PATIENT. ACR BI-RADS Category 2 - Benign finding MAMMOGRAPHY NOTE: 1. A negative mammogram report should not delay a biopsy if a dominant of clinically suspicious mass is present. 2. Approximately 10% to 15% of breast cancers are not detected by mammography. 3. Adenosis and dense breasts may obscure an underlying neoplasm.
== END 2018-07-02 10:21 | disposition home or self-care (01) ==
LOC: BICMAMMO 10:20
PROVIDERS: ATTEND Internal Medicine
DX: Z12.31 Encounter for screening mammogram for malignant neoplasm of breast (principal); M85.852 Other specified disorders of bone density and structure, left thigh; M81.0 Age-related osteoporosis without current pathological fracture; Z80.3 Family history of malignant neoplasm of breast
CPT/HCPCS: 77063; 77067; 77080

== ENCOUNTER 2018-07-26 11:35 | Outpatient (CLI) | payer MEDICARE, BC ==
--- NOTE | 2018-07-26 12:42 | RAD ---
THREE VIEWS THORACIC SPINE: 07/26/18 COMPARISON: 12/27/16. HISTORY: Pain. FINDINGS: AP, upper lateral and lower lateral views of the thoracic spine demonstrates mild loss of disc space height and osteophyte formation throughout the thoracic spine. There is diffuse bone demineralization . No definite fractures. There are twelve thoracic type vertebral bodies. IMPRESSION: Multilevel degenerative change without evidence of fracture. POS: [facility]
== END 2018-07-26 11:36 | disposition home or self-care (01) ==
LOC: BICRAD 11:35
PROVIDERS: ATTEND Internal Medicine Rheumatology
DX: M54.6 Pain in thoracic spine (principal); M47.814 Spondylosis without myelopathy or radiculopathy, thoracic region
CPT/HCPCS: 72072

== ENCOUNTER 2018-08-20 14:24 | Outpatient (CLI) | payer MEDICARE, BC ==
--- NOTE | 2018-08-20 14:55 | RAD ---
PA AND LATERAL VIEWS OF THE CHEST 08/20/18 HISTORY: Chest pain, back pain. FINDINGS: Comparison is made with the exam of 12/27/16. FINDINGS: There are changes of median sternotomy. The heart size is normal. The aorta is tortuous. The lungs ar e well expanded without lobar consolidation, pneumothoraces, or pleural effusions. There are degenera tive changes of the spine. IMPRESSION: No acute process. POS: [facility]
== END 2018-08-20 14:25 | disposition home or self-care (01) ==
LOC: SCSRAD 14:24
PROVIDERS: ATTEND Internal Medicine
DX: R07.89 Other chest pain (principal)
CPT/HCPCS: 71046

== ENCOUNTER 2018-09-20 11:01 | Outpatient (CLI) | payer MEDICARE, BC ==
--- NOTE | 2018-09-20 15:04 | MRI ---
MRI LEFT KNEE PERFORMED WITHOUT CONTRAST ENHANCEMENT: Date: 09/20/18 HISTORY: Knee pain. FINDINGS: Anterior, as well as posterior cruciate ligaments are intact. There is a chronic macerated appearing tear involving the posterior horn and body region of the media l meniscus. There is meniscal protrusion associated with this. There are Grade IV chondromalacia brooks ges and a small subchondral insufficiency fracture involving the medial edge of the medial tibial michael teau. The lateral meniscus also shows more chronic appearing tear and truncation to the body of the meniscu s. Changes are less pronounced than on the medial side. Prominent osteophytic change seen and mild ar ticular cartilage loss. Medial and lateral collateral ligaments, and iliotibial band regions are unremarkable. There is articular cartilage loss involving the patellar articular cartilage, particularly the latera l facet, and also involving the lateral trochlear groove. The medial and lateral patellar retinaculum , and quadriceps and patellar tendons are normal. There is a joint effusion present with some mild ar ticular bodies. There is also cyst formation along the more posteromedial corner of the medial tibial plaque. This is probably parameniscal cyst formation related to the changes of the medial meniscus. IMPRESSION: 1. Chronic appearing tear and truncation to the body of the lateral meniscus with moderately severe articular cartilage loss of the lateral compartment. 2. More pronounced changes of the medial compartment of the knee. There is a macerated tear involvin g the posterior horn and body region, and severe articular cartilage loss of the small subchondral in sufficiency fracture of the medial tibial plateau, and what appears to be parameniscal cyst formation . POS: [facility]
--- NOTE | 2018-09-20 15:11 | MRI ---
MRI RIGHT KNEE PERFORMED WITHOUT CONTRAST ENHANCEMENT: Date: 09/20/18 HISTORY: No history of surgery. History of bilateral knee pain. FINDINGS: The anterior, as well as posterior cruciate ligaments are intact. There is a chronic macerated appearing tear of the medial meniscus. The posterior horn is blunted in addition to tear extending into the substance to the peripheral red zone. The body of the meniscus is subluxed and of increased signal change and disorganized in appearance. This is associated with danita re Grade IV chondromalacia changes of both the tibia and femur, and even some bony remodeling to the femoral condyle. Subchondral marrow edema change is also seen related to the loss of articular cartil age. The lateral meniscus shows area of slight increased signal change near the anterior horn/body junctio n which is suggestive of a small undersurface tear. There are some mild to moderate arthritic changes of the lateral compartment of the knee. The medial and lateral collateral ligaments and iliotibial band regions are unremarkable. The patellar articular cartilage shows mild articular cartilage thinning and some osteophytic change along the medial facet. Medial and lateral patellar retinaculum and quadriceps and patellar tendons a re normal. There is a small joint effusion and there is a Carroll's cyst present. IMPRESSION: Severe arthritic changes of the knee, mainly related to marked medial compartment narrowing and chron ic medial meniscus tear. POS: [facility]
== END 2018-09-20 11:02 | disposition home or self-care (01) ==
LOC: SCSMRI 11:01
PROVIDERS: ATTEND Internal Medicine Rheumatology
DX: M17.0 Bilateral primary osteoarthritis of knee (principal); M23.222 Derangement of posterior horn of medial meniscus due to old tear or injury, left knee; M23.201 Derangement of unspecified lateral meniscus due to old tear or injury, left knee; M84.462A Pathological fracture, left tibia, initial encounter for fracture; M23.203 Derangement of unspecified medial meniscus due to old tear or injury, right knee

== ENCOUNTER 2020-06-29 14:22 | Observation (INO) | payer MEDICARE, BC ==
[2020-06-29 18:05] VITALS: BMI 33.5
[2020-06-29] MEDS ORDERED: Nitroglycerin 0.4 MG TAB (25 Tab Bottle) SL PRN (18:24)
[2020-06-29 19:07] LABS: Troponin I Less than 0.010 ng/mL (< 0.028)
[2020-06-29] MEDS ORDERED: Loperamide HCl 2 MG CAP PO PRN (19:17)
[2020-06-29] MEDS ORDERED: Zolpidem Tartrate 5 MG TAB PO PRN (19:17)
[2020-06-29] MEDS ORDERED: Senokot S 8.6-50 MG TAB PO PRN (19:17)
[2020-06-29] MEDS ORDERED: Acetaminophen 325 MG TAB PO PRN (19:17)
[2020-06-29] MEDS ORDERED: Guaifenesin DM 100-10/5 ML UDCUP PO PRN (19:17)
[2020-06-29] MEDS ORDERED: Bisacodyl 10 MG SUPP PR PRN (19:17)
[2020-06-29] MEDS ORDERED: Calcium Carbonate 500 MG ChewTAB PO PRN (19:17)
[2020-06-29] MEDS ORDERED: predniSONE 5 MG TAB PO SCH ×2 (19:30→21:00)
[2020-06-29] MEDS ORDERED: Lorazepam 1 MG TAB PO SCH (21:00)
[2020-06-29 22:36] LABS: Troponin I Less than 0.010 ng/mL (< 0.028)
[2020-06-30 01:18] LABS: SARS-CoV-2 PCR by NAA Not Detected (NotDetected)
[2020-06-30 05:00] LABS: #Basophils 0.1 thou/uL (0.0-0.2); #Eosinphils 0.2 thou/uL (0.0-0.7); #Lymphocytes 2.8 thou/uL (1.20-3.40); #Monocytes 0.6 thou/uL (0.11-0.59); #Neutrophils 3.9 thou/uL (1.40-6.50); %Basophils 0.9 % (0.0-1.0); %Eosinophils 2.4 % (0.0-10.0); %Lymphocytes 37.2 % (21.0-51.0); %Monocytes 7.4 % (0.0-10.0); %Neutrophils 52.2 % (42.0-75.0); Hemoglobin 12.1 g/dL (12.0-16.0); Mean Corpuscular HGB CONC 32.6 g/dL (32.0-36.0); Mean Corpuscular Hemoglobin 30.6 pg (27.0-31.0); Mean Corpuscular Volume 93.9 fL (78.0-98.0); Mean Platelet Volume 7.9 fL (7.4-10.4); Platelet Count 235 thou/uL (130-400); RBC Distribution Width 12.2 % (11.5-14.5); Red Blood Cell (RBC) Count 3.97 mill/uL (4.20-5.40); White Blood Cell (WBC) Count 7.4 thou/uL (4.8-10.8)
[2020-06-30 05:42] LABS: Anion Gap 12 mmol/L (10-20); BUN (Urea Nitrogen) 26 mg/dL (9.8-20.1); Calc. Creatinine Clearance 63 mL/min (70-130); Calcium 9.5 mg/dL (7.8-10.44); Carbon Dioxide 25 mmol/L (23-31); Cardiac Risk 2.8 (Less than 4.5); Chloride 106 mmol/L (98-107); Cholesterol 138 mg/dl (< 200 Desired); Glucose 104 mg/dL (83-110); HDL Cholesterol 50 mg/dL (>60 Neg Risk); LDL Cholesterol, Calculated 54 mg/dL; Potassium 4.1 mmol/L (3.5-5.1); Sodium 139 mmol/L (136-145); Triglycerides 171 mg/dL (Less than 150)
[2020-06-30] MEDS ORDERED: predniSONE 5 MG TAB PO SCH (08:00)
[2020-06-30] MEDS ORDERED: Multivit, Therapeutic 1 TAB PO SCH (09:00)
[2020-06-30] MEDS ORDERED: Atorvastatin Calcium 40 MG TAB PO SCH ×2 (09:00→21:00)
[2020-06-30] MEDS ORDERED: Atorvastatin Calcium 20 MG TAB PO SCH (09:00)
[2020-06-30] MEDS ORDERED: Losartan/Hydrochlorothiazide 100 mg/25 mg Tablet PO SCH (09:00)
[2020-06-30] MEDS ORDERED: Aspirin Chewable 81 MG TAB PO SCH ×2 (09:00)
[2020-06-30] MEDS ORDERED: Enoxaparin Sodium 30 MG/0.3 ML SYRINGE SC SCH (09:00)
[2020-06-30] MEDS ORDERED: Famotidine 20 MG TAB PO SCH (09:00)
[2020-06-30] MEDS ORDERED: Regadenoson 0.4 MG/5 ML SYRINGE ONE (09:31)
[2020-06-30 17:30] VITALS: BP 122/68; TEMP 98.2
== END 2020-06-30 19:52 | disposition home or self-care (01) ==
LOC: 2SW 14:22
PROVIDERS: ADMIT Internal Medicine; ATTEND Family Medicine
DX: R07.89 Other chest pain (principal); I25.10 Atherosclerotic heart disease of native coronary artery without angina pectoris; K21.9 Gastro-esophageal reflux disease without esophagitis; I10 Essential (primary) hypertension; E78.5 Hyperlipidemia, unspecified; M06.9 Rheumatoid arthritis, unspecified; M81.0 Age-related osteoporosis without current pathological fracture; Z79.82 Long term (current) use of aspirin; Z79.899 Other long term (current) drug therapy; E66.9 Obesity, unspecified; Z68.33 Body mass index [BMI] 33.0-33.9, adult; Z88.0 Allergy status to penicillin; Z88.5 Allergy status to narcotic agent; Z88.8 Allergy status to other drugs, medicaments and biological substances; Z20.822 Contact with and (suspected) exposure to COVID-19
CPT/HCPCS: 78452; 80048; 80061; 84484; 85025; 93017; 94760; A9500; U0003; U0005; 36415; 87635; 96372; G0378; J1650; J2785; J7512

== ENCOUNTER 2023-08-18 20:39 | Observation (INO) | payer MEDICARE, BC ==
[~2023-08-18 20:39] MED LIST changes: -Iopamidol 370 76% 100 ML VIAL ONE; +Iopamidol-370 76% 500 ML MDV (1 ML CHARGE) ONE
[2023-08-18 21:11] LABS: #Basophils 0.08 10x3/uL (0.0-0.2); %Basophils 0.5 % (0.0-1.0); %Eosinophils 0.2 % (0.0-10.0); %Lymphocytes 6.6 % (21.0-51.0); %Monocytes 4.8 % (0.0-10.0); %Neutrophils 87.5 % (42.0-75.0); Hematocrit 37.6 % (36.0-47.0); Mean Corpuscular HGB CONC 34.6 g/dL (32.0-36.0); Mean Corpuscular Hemoglobin 31.3 pg (27.0-31.0); Mean Corpuscular Volume 90.6 fL (78.0-98.0); Mean Platelet Volume 10.2 fL (7.4-10.4); Platelet Count 270 10x3/uL (130-400); RBC Distribution Width 13.5 % (11.5-14.5); Red Blood Cell (RBC) Count 4.15 mill/uL (4.20-5.40)
[2023-08-18 21:15] LABS: Bacteria/HPF 2+ HPF (None Seen); Bilirubin Negative (Negative); Blood, Urine Negative (Negative); CAUTI Indications for Culture Pelvic or flank pain; Clarity Clear (Clear); Glucose, Urine (Dipstick) Normal (Negative); Ketone, Urine Negative (Negative); Leukocyte 25 Leu/uL (Negative); Nitrite 1+ (Negative); Protein, Urine (Dipstick) Negative (Neg-Trace); RBC/HPF 0-3 HPF (0-3); Specific Gravity, Urine 1.009 (1.002-1.036); Squamous Epithelial 0-3 HPF (0-3); Urobilinogen Normal mg/dL (Less than 2)
[2023-08-18 21:17] LABS: Urine Culture Reflex No No
[2023-08-18] MEDS ORDERED: LevoFLOXacin 750 mg/D5W 150 ml Premix Bag ONE (21:25)
[2023-08-18 21:26] LABS: ALT (SGPT) 34 U/L (8-55); AST (SGOT) 22 U/L (5-34); Albumin 3.9 g/dL (3.4-4.8); Alkaline Phosphatase 87 U/L (40-110); Anion Gap 17 mmol/L (10-20); BUN (Urea Nitrogen) 27 mg/dL (9.8-20.1); Bilirubin, Total 0.8 mg/dL (0.2-1.2); Calc. Creatinine Clearance 0 mL/min (70-130); Carbon Dioxide 20 mmol/L (23-31); Chloride 105 mmol/L (98-107); Estimated GFR 54; Globulin 2.9 g/dL (2.4-3.5); Glucose 134 mg/dL (83-110); Lipase 28 U/L (8-78); Potassium 3.7 mmol/L (3.5-5.1); Protein, Total 6.8 g/dL (5.8-8.1); Sodium 138 mmol/L (136-145)
[2023-08-18 21:29] LABS: Troponin I Less than 0.010 ng/mL (< 0.028)
[2023-08-19] MEDS ORDERED: Ondansetron PF 4 MG/2 ML Vial IVP PRN (00:15)
[2023-08-19] MEDS ORDERED: Ondansetron ODT 4 MG TAB SL PRN (00:15)
[2023-08-19] MEDS ORDERED: Sodium Chloride 0.9% 1,000 ML IV SCH (00:15)
[2023-08-19] MEDS ORDERED: Acetaminophen 325 MG TAB PO PRN (00:32)
[2023-08-19] MEDS ORDERED: Nitroglycerin 0.4 MG TAB (25 Tab Bottle) SL PRN (00:32)
[2023-08-19 01:57] LABS: Troponin I Less than 0.010 ng/mL (< 0.028)
[2023-08-19 03:00] VITALS: BMI 33.8
[2023-08-19] MEDS ORDERED: Lorazepam 1 MG TAB PO PRN (04:44)
[2023-08-19 04:57] LABS: #Basophils 0.04 10x3/uL (0.0-0.2); %Basophils 0.4 % (0.0-1.0); %Eosinophils 1.1 % (0.0-10.0); %Lymphocytes 14.6 % (21.0-51.0); %Monocytes 7.3 % (0.0-10.0); %Neutrophils 76.3 % (42.0-75.0); Hematocrit 34.2 % (36.0-47.0); Hemoglobin 11.6 g/dL (12.0-16.0); Mean Corpuscular HGB CONC 33.9 g/dL (32.0-36.0); Mean Corpuscular Hemoglobin 32.3 pg (27.0-31.0); Mean Corpuscular Volume 95.3 fL (78.0-98.0); Mean Platelet Volume 10.1 fL (7.4-10.4); Platelet Count 228 10x3/uL (130-400); RBC Distribution Width 13.7 % (11.5-14.5); Red Blood Cell (RBC) Count 3.59 mill/uL (4.20-5.40)
[2023-08-19 05:14] LABS: Anion Gap 11 mmol/L (10-20); BUN (Urea Nitrogen) 26 mg/dL (9.8-20.1); Calc. Creatinine Clearance 49 mL/min (70-130); Calcium 9.6 mg/dL (7.8-10.44); Carbon Dioxide 25 mmol/L (23-31); Cardiac Risk 2.6 (Less than 4.5); Chloride 107 mmol/L (98-107); Cholesterol 124 mg/dl (< 200 Desired); Estimated GFR 52; Glucose 122 mg/dL (83-110); HDL Cholesterol 47 mg/dL (>60 Neg Risk); LDL Cholesterol, Calculated 62 mg/dL; Potassium 3.9 mmol/L (3.5-5.1); Sodium 139 mmol/L (136-145); Triglycerides 77 mg/dL (Less than 150)
[2023-08-19 05:40] LABS: Troponin I Less than 0.010 ng/mL (< 0.028)
[2023-08-19] MEDS: Enoxaparin 40 MG (0.4 mL) SYRINGE SC SCH (08:51)
[2023-08-19] MEDS: Pantoprazole DR 40 MG TAB PO SCH (08:52)
[2023-08-19] MEDS: Hydrochlorothiazide 25 MG TAB PO SCH (08:52)
[2023-08-19] MEDS: Famotidine 20 MG TAB PO SCH (08:52)
[2023-08-19] MEDS: Aspirin 81 mg Enteric Coated Tablet PO SCH (08:52)
[2023-08-19] MEDS: Losartan 25 MG TAB PO SCH (08:52)
[2023-08-19] MEDS ORDERED: Aspirin 325 MG TAB PO SCH (09:00)
[2023-08-19] MEDS: Atorvastatin Calcium 40 MG TAB PO SCH (09:40)
[2023-08-19] MEDS: Ezetimibe 10 MG TAB PO SCH (09:40)
[2023-08-19 10:06] VITALS: BP 129/59; TEMP 97.8
[2023-08-19] MEDS ORDERED: ADENOSINE 60 MG/20 ML SDV ONE (11:21)
[2023-08-19] MEDS ORDERED: Ezetimibe 10 MG TAB PO SCH (21:00)
[2023-08-19] MEDS ORDERED: Atorvastatin Calcium 40 MG TAB PO SCH (21:00)
[2023-08-19] MEDS ORDERED: Oxybutynin 5 MG TAB PO SCH (21:00)
[2023-08-20] MEDS ORDERED: LevoFLOXacin 750 mg/D5W 750 MG in Premix 1 BAG IVPB SCH (22:00)
[2023-08-21] MEDS ORDERED: predniSONE 5 MG TAB PO SCH (08:00)
== END 2023-08-19 15:30 | disposition home or self-care (01) ==
LOC: ERS 20:39 → 2SW 08-19 00:04
PROVIDERS: ADMIT Internal Medicine; ATTEND Internal Medicine
DX: R07.2 Precordial pain (principal); I25.10 Atherosclerotic heart disease of native coronary artery without angina pectoris; I10 Essential (primary) hypertension; E78.5 Hyperlipidemia, unspecified; M06.9 Rheumatoid arthritis, unspecified; K21.9 Gastro-esophageal reflux disease without esophagitis; N39.0 Urinary tract infection, site not specified; M81.0 Age-related osteoporosis without current pathological fracture; Z96.653 Presence of artificial knee joint, bilateral; Z90.49 Acquired absence of other specified parts of digestive tract; Z90.710 Acquired absence of both cervix and uterus; Z95.1 Presence of aortocoronary bypass graft; Z87.891 Personal history of nicotine dependence; Z88.5 Allergy status to narcotic agent; Z88.0 Allergy status to penicillin; Z79.82 Long term (current) use of aspirin; Z79.899 Other long term (current) drug therapy
CPT/HCPCS: 71045; 71275; 78452; 80048; 80053; 80061; 81001; 83690; 83880; 84484 ×3; 85025 ×2; 85379; 87077; 87086; 87186; 93005; 93017; 96372; A9502; G0378 ×2; J0153; J1650; J1956; Q9967; 36415; 96365